=== PATIENT | female | born 1960 | race Caucasian/White ===

== ENCOUNTER 2019-12-16 08:22 | Outpatient (CLI) | payer OTHER, SELFPAY ==
--- NOTE | ~2019-12-16 | XR_ITS ---
XR hip RT 2V w AP pelvis 12/16/2019 08:59 Indication: Osteoarthritis. Hip pain. Procedure: AP pelvis and 2 views right hip Comparison: Comparison to multiple prior studies sequentially, with oldest reviewed study dated 05/29. Findings: There is a right total hip arthroplasty. Pelvic rings are intact. No fracture or traumatic malalignment. Prosthesis well seated. Sacral foramen are symmetric. Mild degenerative changes of the left hip. Impression: 1: No acute bone or joint abnormality. Reviewed, dictated and finalized at location B. 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
--- NOTE | ~2019-12-16 | XR_ITS ---
XR cervical spine 4-5V 12/16/2019 08:59 Indication: Osteoarthritis of the cervical spine Procedure: 4 view cervical spine Comparison: 03/30/2013 Findings: There is straightening of cervical lordosis. There is disc narrowing and endplate hypertrop hy at C5-6 and C6-7. There is moderate multilevel uncinate and facet hypertrophy. Lung apices are nor mal. Odontoid process within normal limits. No prevertebral soft tissue swelling. Impression: 1: Stable moderate cervical spondylosis. Reviewed, dictated and finalized at location B. UP MAKER Impression: 1: Stable moderate cervical spondylosis.
--- NOTE | ~2019-12-16 | XR_ITS ---
EXAMINATION: XR lumbar spine min 4V DATE: 12/16/2019 08:59 INDICATION: Lumbar spondylosis. TECHNIQUE: 5 views of lumbar spine were obtained. COMPARISON: Lumbar spine radiographs 01/17/2019, CT abdomen and pelvis 12/17/2013 FINDINGS: There is 3 mm anterolisthesis of L5 on S1. There is 6 degrees levocurvature of lumbar spine . Vertebral body heights and intervertebral disc heights are normal. There are endplate osteophytes a t multiple levels. There is multilevel facet joint osteoarthritis, severe bilaterally at L4-L5 and L5 -S1. There is a right hip arthroplasty. Surgical clips in the right upper quadrant are likely from ch olecystectomy. IMPRESSION: 1. Mild lumbar spondylosis. Reviewed, dictated and finalized at location A. AGE SEALER IMPRESSION: 1. Mild lumbar spondylosis.
== END 2019-12-16 08:23 | disposition home or self-care (01) ==
LOC: ANHIMG 08:31
PROVIDERS: PCP Family Medicine; Visit Provider Family Medicine
DX: M16.11 Unilateral primary osteoarthritis, right hip (principal); M47.816 Spondylosis without myelopathy or radiculopathy, lumbar region; M47.812 Spondylosis without myelopathy or radiculopathy, cervical region
CPT/HCPCS: 72050; 72110; 73502; 73521

== ENCOUNTER 2020-05-13 16:17 | Outpatient (CLI) | payer OTHER, SELFPAY ==
--- NOTE | 2020-05-13 16:23 | ECG_ITS ---
Measurements Intervals [place] Rate: 81 P: 29 MS: 144 QRS: 37 QRSD: 109 T: 49 QT: 343 QTc: 400 Interpretive Statements SINUS RHYTHM BORDERLINE ST ABNORMALITY- LATERAL LEADS BORDERLINE ECG Electronically Signed On 05-13-2020 16:34:00 CDT by Brandon Kirkland D.O.
[2020-05-13 17:48] LABS: Hematocrit 38.8 % (37.0-47.0); Hemoglobin 12.6 g/dL (12.0-15.0); Mean Corpuscular HGB Conc 32.5 g/dl (32-36); Mean Corpuscular Hemoglobin 30.5 pg (26-34); Mean Corpuscular Volume 93.9 fl (80-100); Mean Platelet Volume 10.5 fl (7.4-10.4); Platelet Count Result 242 k/mm3 (150-375); Red Blood Count 4.13 M/mm3 (4.2-5.4); Red Cell Distribution Width 14.6 % (11.5-14.5); White Blood Count 9.4 K/mm3 (4.5-10.0)
[2020-05-13 17:59] LABS: Anion Gap 11.1 mmol/L (7-16); Blood Urea Nitrogen 16 mg/dL (7-17); Calcium 8.9 mg/dL (8.4-10.2); Carbon Dioxide 28 mmol/L (22-30); Chloride 102 mmol/L (98-107); Estimated Glomerular Filt Rate > 60; Glucose 113 mg/dL (65-105); Magnesium 1.7 mg/dL (1.6-2.3); Potassium 4.1 mmol/L (3.4-5.0); Sodium 137 mmol/L (137-145)
[2020-05-13 18:09] LABS: NT Pro B Type Natriuretic Pept 118 PG/ML (5-100)
[2020-05-13 18:49] LABS: Free T4 Free Thyroxine 1.19 ng/mL (0.78-2.19); Vitamin D 25 Hydroxy 42.7 ng/mL
[2020-05-14 12:41] LABS: Hemoglobin A1C 6.6 % (<5.7)
== END 2020-05-13 16:18 | disposition home or self-care (01) ==
PROVIDERS: PCP Family Medicine; Visit Provider Nurse Practitioner Family
DX: E03.9 Hypothyroidism, unspecified (principal); L74.9 Eccrine sweat disorder, unspecified; M79.89 Other specified soft tissue disorders; M62.838 Other muscle spasm; E55.9 Vitamin D deficiency, unspecified; R06.02 Shortness of breath; R73.09 Other abnormal glucose; R94.31 Abnormal electrocardiogram [ECG] [EKG]
CPT/HCPCS: 36415; 80048; 82306; 82607; 83036; 83735; 83880; 84439; 84443; 85027; 93005

== ENCOUNTER 2020-06-04 15:29 | Outpatient (CLI) | payer OTHER, SELFPAY ==
--- NOTE | 2020-06-15 12:40 | WPDHOLTEREM ---
Holter/Event Monitor Holter/Event Monitor Date of procedure: 06/04/20 Procedure Type: 24 hour holter monitor Indications: Abnormal EKG Conclusion: 1. 24 hour holter monitor on 06/04/20. 2. Underlying rhythm is sinus rhythm. HR range 59-117 bpm; average HR 76 bpm. 3. There are 199 premature supraventricular complexes and 1 supraventricular couplet. No supraventricular tachycardia. 4. There are 18 premature ventricular complexes and 1 ventricular triplet. No ventricular tachycardia. 5. No sinoatrial or atrioventricular blocks. No significant pauses greater than 2 seconds. 6. Patient reports slight shortness of breath and excessive sweating which demonstrate sinus rhythm, HR range 68-97 bpm.
== END 2020-06-04 15:30 | disposition home or self-care (01) ==
LOC: ANHCARD 15:30
PROVIDERS: PCP Family Medicine; Visit Provider Nurse Practitioner Family
DX: R94.31 Abnormal electrocardiogram [ECG] [EKG] (principal)
CPT/HCPCS: 93225; 93226

== ENCOUNTER → 2021-01-05 07:10 | Outpatient (CLI) | payer OTHER, SELFPAY ==
[2021-01-05 16:22] LABS: SARS-CoV-2 RNA PCR Negative
== END ==
PROVIDERS: PCP Family Medicine; Visit Provider Nurse Practitioner Family
DX: R68.89 Other general symptoms and signs (principal); Z20.822 Contact with and (suspected) exposure to COVID-19
CPT/HCPCS: C9803; U0003; U0005

== ENCOUNTER 2022-03-04 22:01 | Emergency (ER) | payer OTHER, SELFPAY ==
--- NOTE | ~2022-03-04 | XR_ITS ---
EXAMINATION: XR foot LT min 3V DATE: 03/04/2022 22:31 INDICATION: Pain and bruising at the lateral left foot post fall TECHNIQUE: Dorsoplantar, two oblique and lateral views of the left foot were obtained. COMPARISON: None. FINDINGS: Mildly comminuted oblique fracture extending from the proximal to the distal diaphysis of the left fi fth metatarsal. Approximately 3 to 4 mm lateral displacement. No other fractures identified. Alignmen t and remainder of the left foot is normal. Mild polyarticular osteoarthritis at the first metatarsop halangeal and a few tarsometatarsal and interphalangeal joints. Bunion with focal soft tissue swellin g overlying the medial head of the first metatarsal. IMPRESSION: 1. 3-4 mm lateral displacement of a mildly comminuted diaphyseal fracture of the left fifth metatarsa l. Reviewed, dictated and finalized at location A. IMPRESSION: 1. 3-4 mm lateral displacement of a mildly comminuted diaphyseal fracture of th e left fifth metatarsal.
[2022-03-04 22:11] VITALS: BP 136/62; PULSE 78; RESP 16; TEMP 36.6; O2SAT 98
--- NOTE | 2022-03-04 22:45 | ED.LOWEXIN ---
HPI - Extremity Injury (Lower) General Chief Complaint: Extremity Injury, Lower Stated Complaint: left foot injury Time Seen by Provider: 03/04/22 22:25 Source: patient History of Present Illness HPI Narrative: Patient presents with foot pain. Patient ports she was walking down the steps missed the last step and inversion injury and fell. Denies striking her head or any loss of conscious denies use of any blood thinners. She has had continued pain since then noted large amount of bruising so she came to the ER for further evaluation she denies any focal numbness or weakness. She denies any prodrome prior to fall such as chest pain, lightheadedness, dizziness, shortness of breath. Related Data Home Medications Medication Instructions Recorded Confirmed [id number] carb-vit K 1 tablet PO DAILY 03/23/20 10/26/21 18 mg iron-400 mcg-500 mg tablet vitamin B complex 1 tablet PO DAILY 03/23/20 10/26/21 divalproex 250 mg tablet,delayed 250 mg PO ONCE tablet 10/26/21 10/26/21 release Allergies Allergy/AdvReac Type Severity Reaction Status Date / Time clarithromycin Allergy Intermediate Rash Verified 10/26/21 08:35 Review of Systems Review of Systems: CONSTITUTIONAL: Denies fever, chills, or sweats. EYES: Denies visual changes, redness, or discharge. ENT: Denies rhinorrhea, congestion, sore throat, or otalgia. CARDIOVASCULAR: Denies chest pain, palpitations, or edema. RESPIRATORY: Denies cough or dyspnea. GASTROINTESTINAL: Denies abdominal pain, nausea, vomiting, or diarrhea. GENITOURINARY: Denies dysuria or hematuria. SKIN: Denies rash or itching. MUSCULOSKELETAL: Denies back pain, or myalgia. NEUROLOGIC: Denies headache, numbness, dizziness, or weakness. PSYCHIATRIC: Denies anxiety or depression. All systems reviewed & are unremarkable except as noted in HPI and below PMFSH Past Medical History Medical History BMI 29.0-29.9,adult BMI 30.0-30.9,adult BMI 31.0-31.9,adult Cholecystectomy planned Hip replacement planned Tubal ligation evaluation Family History Family History Grandparent Hypertension Diabetes mellitus Mother Family history of malignant neoplasm of bone Family history of lung cancer Patient's mother is Father Family history of elevated blood lipids, Onset Age: 79 Patient's father is Alzheimer's dementia Sibling Fibromyalgia Diabetes mellitus Pacemaker Other Carcinoma of colon Family history of arthritis Family history of malignant neoplasm Family history of malignant neoplasm of male breast Social History Social History Smoking status: Current every day smoker Tobacco type: cigarettes Second hand tobacco smoke exposure: No Alcohol intake: never Substance use: never Substance use type: does not use 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 HEAD: Normocephalic, atraumatic. EYES: PERRLA and EOMI. ENT: Nares clear, no rhinorrhea or epistaxis. Mucous membranes moist. EXTREMITIES: Normal range of motion. Ecchymosis noted to the lateral distal dorsal aspect of the left foot there is tenderness along the shaft of the fifth metatarsal SKIN: Warm, dry, no rash. NEURO: No focal deficits. Alert and oriented x3. PSYCH: Normal mood and affect. Course Reevaluation(s) Reevaluation #1: Discussed with Dr. Villanueva recommends postop shoe as well as crutches and will follow up with the patient in clinic. Results and plan reviewed with patient. Patient is comfortable outpatient plan. Vital Signs Vital signs: Vital Signs Temperature 36.6 C 03/04/22 22:11 Pulse Rate 78 03/04/22 22:11 Respiratory Rate
== END 2022-03-04 23:18 | disposition home or self-care (01) ==
PROVIDERS: Emergency Provider Emergency Medicine; PCP Family Medicine
DX: S92.352A Displaced fracture of fifth metatarsal bone, left foot, initial encounter for closed fracture (principal); F17.210 Nicotine dependence, cigarettes, uncomplicated; W10.9XXA Fall (on) (from) unspecified stairs and steps, initial encounter
CPT/HCPCS: 73630; 99284